=== PATIENT | male | born 2000 | race Caucasian/White ===

== ENCOUNTER 2023-08-25 23:47 | Emergency (ER) | payer OTHER ==
[~2023-08-25] VITALS: Ht 167.6 cm; Wt 79.4 kg
[2023-08-26 00:25] VITALS: BP 142/88; PULSE 74; RESP 16; TEMP 98.7; O2SAT 100
[2023-08-26 02:34] VITALS: BP 142/88; PULSE 74; RESP 16; TEMP 98.7; O2SAT 100
== END 2023-08-26 02:34 | disposition home or self-care (01) ==
LOC: MED 23:47
DX: K62.5 Hemorrhage of anus and rectum (principal)
CPT/HCPCS: 99281